=== PATIENT | male | born 1950 | race African-American/Black ===

== ENCOUNTER 2022-08-03 22:30 | Emergency (ER) | payer MEDICAID, OTHER ==
[~2022-08-03] VITALS: Ht 167.6 cm; Wt 86.5 kg
[2022-08-04 00:48] LABS: BASOPHILS % 0.4 % (0.0-2.0); EOSINOPHILS % 1.1 % (0.0-5.0); HEMATOCRIT. 33.6 % (42.0-52.0); HEMOGLOBIN. 11.6 g/dL (14.0-18.0); LYMPHOCYTES % 35.1 % (20.0-50.0); MEAN CORPUSCULAR HEMOGLOBIN 31.5 pg (28.0-32.0); MEAN CORPUSCULAR VOLUME 91.7 fL (80.0-94.0); MEAN PLATELET VOLUME 8.5 fl (7.4-10.4); MONOCYTES % 8.5 % (2.0-8.0); NEUTROPHILS % 54.9 % (40.0-76.0); PLATELET 190 x1000/uL (130-400); RED BLOOD CELL COUNT 3.67 mill/uL (4.7-6.1); RED CELL DISTRIBUTION WIDTH 14.8 % (11.6-14.6)
[2022-08-04 00:56] LABS: CHLORIDE 113 mEq/L (98-107)
[2022-08-04 01:03] LABS: ETHANOL BLOOD < 10 mg/dL
[2022-08-04] MEDS: SODIUM CHLORIDE 0.9% 1,000 ML IV ONE (01:03)
[2022-08-04 01:56] LABS: CLARITY URINE CLEAR (CLEAR); COLOR URINE YELLOW (YELLOW); KETONES URINE NEGATIVE (NEGATIVE); LEUKOCYTE ESTERASE URINE NEGATIVE (NEGATIVE); NITRITE URINE NEGATIVE (NEGATIVE); OCCULT BLOOD URINE NEGATIVE (NEGATIVE); PROTEIN URINE NEGATIVE (NEGATIVE); SPECIFIC GRAVITY URINE 1.016 (1.005-1.030)
[2022-08-04 02:09] LABS: *AMPHETAMINES SCREEN URINE NEGATIVE (NEGATIVE); *BARBITURATES SCREEN URINE NEGATIVE (NEGATIVE); *BENZODIAZEPINES SCREEN URINE NEGATIVE (NEGATIVE); *COCAINE SCREEN URINE NEGATIVE (NEGATIVE); CANNABINOID URINE SCREEN NEGATIVE (NEGATIVE); METHADONE URINE SCREEN NEGATIVE (NEGATIVE); OPIATES URINE SCREEN NEGATIVE (NEGATIVE); PHENCYCLIDINE URINE SCREEN NEGATIVE (NEGATIVE)
[2022-08-04] MEDS ORDERED: IOHEXOL-350 100 ML BOTTLE ONE (06:13)
[2022-08-04 09:34] VITALS: BP 112/70
== END 2022-08-04 10:42 | disposition short-term general hospital (02) ==
LOC: ER 22:30
DX: R47.01 Aphasia (principal); Z86.73 Personal history of transient ischemic attack (TIA), and cerebral infarction without residual deficits; E11.9 Type 2 diabetes mellitus without complications; Z20.822 Contact with and (suspected) exposure to COVID-19
CPT/HCPCS: 36415; 70450; 70496; 80053; 80305; 80320; 81003; 82962; 85025; 87426; 96360; 96361; 99285; C9803; J7030; Q9967; G0480

== ENCOUNTER 2025-08-24 16:58 | Emergency (ER) | payer OTHER ==
[~2025-08-24] VITALS: Ht 172.7 cm; Wt 70.0 kg
[2025-08-24 17:03] VITALS: O2SAT 98
[2025-08-24] MEDS ORDERED: ONDANSETRON HCL 4MG/2ML INJ IV ONE (17:30)
[2025-08-24] MEDS ORDERED: MORPHINE SULFATE 4 MG/ML INJ (FOR IV/IM USE) IV ONE (17:30)
[2025-08-24 18:57] LABS: BASOPHILS % 0.3 % (0.0-2.0); EOSINOPHILS % 0.0 % (0.0-5.0); HEMATOCRIT. 37.2 % (42.0-52.0); HEMOGLOBIN. 12.2 g/dL (14.0-18.0); LYMPHOCYTES % 14.3 % (20.0-50.0); MEAN PLATELET VOLUME 8.8 fl (7.4-10.4); MONOCYTES % 5.9 % (2.0-8.0); NEUTROPHILS % 79.5 % (40.0-76.0); PLATELET 195 x1000/uL (130-400); RED BLOOD CELL COUNT 3.93 mill/uL (4.7-6.1); RED CELL DISTRIBUTION WIDTH 14.5 % (11.6-14.6)
[2025-08-24 19:13] LABS: CREATININE 1.1 mg/dL (0.6-1.3)
[2025-08-24 19:14] LABS: UREA NITROGEN BLOOD 6 mg/dL (9-23)
[2025-08-24 19:15] LABS: ASPARTATE AMINOTRANSFERASE 21 IU/L (<34); TROPONIN I HIGH SENSITIVITY 35 ng/L (3.0-53)
[2025-08-24 19:16] LABS: BILIRUBIN DIRECT 0.2 mg/dL (<=3.0); BILIRUBIN TOTAL 0.7 mg/dL (0.1-1.0); INR 1.0; PROTEIN TOTAL 7.3 g/dL (6.0-8.3)
[2025-08-24] MEDS: SODIUM CHLORIDE 0.9% 1,000 ML IV ONE (19:26)
[2025-08-24] MEDS: CEFTRIAXONE 1GM/50ML 50 ML IV ONE (19:26)
[2025-08-24] MEDS: SODIUM CHLORIDE 0.9% (SEPSIS BOLUS) IV ONE (19:27)
[2025-08-24] MEDS: AZITHROMYCIN 500MG/250ML 250 ML IV ONE (21:14)
[2025-08-24] MEDS: MORPHINE SULFATE 4 MG/ML INJ (FOR IV/IM USE) IV SCH (22:13)
[2025-08-24] MEDS: ONDANSETRON HCL 4MG/2ML INJ IV SCH (22:13)
[2025-08-24 23:55] VITALS: BP 180/96; PULSE 61; RESP 13; TEMP 37.1; O2SAT 98
== END 2025-08-25 00:30 | disposition short-term general hospital (02) ==
LOC: ER 16:58 → CANBEDREQ 08-25 00:06 → ER 08-25 00:30
DX: M25.552 Pain in left hip (principal); M54.50 Low back pain, unspecified; R55 Syncope and collapse; J18.9 Pneumonia, unspecified organism; E11.9 Type 2 diabetes mellitus without complications; I67.82 Cerebral ischemia; Z60.2 Problems related to living alone; Z86.73 Personal history of transient ischemic attack (TIA), and cerebral infarction without residual deficits; W19.XXXA Unspecified fall, initial encounter; Y93.89 Activity, other specified; Y92.89 Other specified places as the place of occurrence of the external cause; Y99.9 Unspecified external cause status
CPT/HCPCS: 80076; 80048; 80320; 82550; 83605; 83735; 85025; 85610; 85730; 87040; 84484; 36415; 73552; 71045; 70450; 72131; 72192; 93005; 96367; 96365; 96375; 99285; J0456; J0696; J2405; J2270; J7030; G0480